=== PATIENT | female | born 1940 | race Caucasian/White ===

== ENCOUNTER → 2018-09-24 | Outpatient (CLI) | payer MEDICARE | LOC: M SLEEP 19:40 | DX: R06.83 Snoring (principal) | CPT/HCPCS: 95810 ==

== ENCOUNTER → 2019-08-05 | Outpatient (REF) | payer MEDICARE | LOC: M SFHCPLAZ 10:00 | PROVIDERS: ATTEND Dermatology | DX: C44.02 Squamous cell carcinoma of skin of lip (principal) ==

== ENCOUNTER → 2019-10-08 | Outpatient (REF) | payer MEDICARE | LOC: M LAB REF 18:52 | PROVIDERS: ATTEND Dermatology | DX: L57.8 Other skin changes due to chronic exposure to nonionizing radiation (principal) ==

== ENCOUNTER → 2020-08-10 | Outpatient (REF) | payer MEDICARE | LOC: M LAB REF 19:14 | PROVIDERS: ATTEND Physician Assistant | DX: D04.61 Carcinoma in situ of skin of right upper limb, including shoulder (principal) | CPT/HCPCS: 11102; 17000; 17003; 88305; G0463 ==

== ENCOUNTER → 2020-10-06 | Outpatient (REF) | payer MEDICARE | LOC: M LAB REF 13:57 | PROVIDERS: ATTEND Dermatology | DX: L90.5 Scar conditions and fibrosis of skin (principal); L57.8 Other skin changes due to chronic exposure to nonionizing radiation ==

== ENCOUNTER → 2022-03-31 | Outpatient (CLI) | payer MEDICARE ==
[~2022-03-31] MED LIST: ALBU8.5H INH; ATEN50TA2 PO; ATOR1TAB19 PO; BENA1TAB24 PO; FLEC1TAB PO; FLUT1BLS5 INH; OMEP-173 PO; SPIR12.9 INH; XARE20TA PO
== END ==
LOC: M ONCR 13:13
PROVIDERS: ATTEND General Practice
DX: R91.1 Solitary pulmonary nodule (principal); I27.20 Pulmonary hypertension, unspecified; J44.9 Chronic obstructive pulmonary disease, unspecified; Z85.3 Personal history of malignant neoplasm of breast

== ENCOUNTER → 2022-04-08 | Outpatient (CLI) | payer MEDICARE ==
[~2022-04-08] MED LIST changes: +PROHANCE 279.3MG/ML 5ML VIAL ONE
== END ==
LOC: M PLAIMG 12:32
PROVIDERS: ATTEND Internal Medicine Hematology & Oncology
DX: Z85.3 Personal history of malignant neoplasm of breast (principal)
CPT/HCPCS: 70553; A9576

== ENCOUNTER 2022-04-27 12:12 | Outpatient (RCR) | payer MEDICARE ==
[~2022-04-27 12:12] MED LIST changes: -PROHANCE 279.3MG/ML 5ML VIAL ONE
== END 2022-05-05 ==
LOC: M ONCR 12:12
PROVIDERS: ATTEND General Practice
DX: C34.12 Malignant neoplasm of upper lobe, left bronchus or lung (principal)

== ENCOUNTER → 2022-07-21 | Outpatient (CLI) | payer MEDICARE ==
[~2022-07-21] MED LIST changes: +ISOVUE-370 76% 100ML VIAL As Ordered ONE
== END ==
LOC: M RAD 09:28
PROVIDERS: ATTEND General Practice
DX: C34.12 Malignant neoplasm of upper lobe, left bronchus or lung (principal)
CPT/HCPCS: 71260; Q9967

== ENCOUNTER → 2022-07-28 | Outpatient (CLI) | payer MEDICARE ==
[~2022-07-28] MED LIST changes: -ISOVUE-370 76% 100ML VIAL As Ordered ONE; +LIDO2SOL17 PO
== END ==
LOC: M ONCR 13:05
PROVIDERS: ATTEND General Practice
DX: C34.12 Malignant neoplasm of upper lobe, left bronchus or lung (principal); I27.20 Pulmonary hypertension, unspecified; J44.9 Chronic obstructive pulmonary disease, unspecified; K21.9 Gastro-esophageal reflux disease without esophagitis; Z79.01 Long term (current) use of anticoagulants; Z79.51 Long term (current) use of inhaled steroids; Z79.899 Other long term (current) drug therapy; Z87.891 Personal history of nicotine dependence; Z85.3 Personal history of malignant neoplasm of breast; Z92.3 Personal history of irradiation

== ENCOUNTER → 2023-05-08 | Outpatient (REF) | payer MEDICARE ==
[~2023-05-08] MED LIST changes: +LIDO15SO PO; -LIDO2SOL17 PO
== END ==
LOC: M SFHCDERM 17:47
PROVIDERS: ATTEND Physician Assistant
DX: L85.8 Other specified epidermal thickening (principal)

== ENCOUNTER 2024-08-02 13:10 | Emergency (ER) | payer MEDICARE ==
[~2024-08-02 13:10] MED LIST changes: +BIOT1CAP2 PO; +CEFD300CAP PO; +DOXY100T PO; +FLUO1CRE2 TOP; -LIDO15SO PO; +LIDO15SO8 PO; +OCUVTAB4 PO; +PRED10TA2 PO; +VITA100093 PO; +VITMTA PO
[2024-08-02] MEDS ORDERED: AMIODARONE 150MG/3ML VIAL ONE (13:11)
[2024-08-02] MEDS ORDERED: EPINEPHrine 1MG/10ML SYRINGE 1.5IN ONE (13:11)
[2024-08-02] MEDS ORDERED: SODIUM BICARBONATE 8.4% INJ 50ML SYRINGE ONE (13:11)
[2024-08-02] MEDS ORDERED: METAL LOCK LOOP XX ONE (13:45)
== END 2024-08-02 15:16 | disposition expired ==
LOC: EDBD 13:10 → EDSEX 13:10 → M ED 13:10
DX: I46.9 Cardiac arrest, cause unspecified (principal); M54.50 Low back pain, unspecified; I10 Essential (primary) hypertension; J44.9 Chronic obstructive pulmonary disease, unspecified; Z86.79 Personal history of other diseases of the circulatory system; Z87.891 Personal history of nicotine dependence; Z88.1 Allergy status to other antibiotic agents; Z88.2 Allergy status to sulfonamides; Z79.52 Long term (current) use of systemic steroids; Z79.02 Long term (current) use of antithrombotics/antiplatelets; Z79.83 Long term (current) use of bisphosphonates; Z79.899 Other long term (current) drug therapy
CPT/HCPCS: 36415; 80047; 92950; 99291; J0171; J0282